=== PATIENT | male | born 1990 | race Caucasian/White ===

== ENCOUNTER 2020-06-20 13:41 | Emergency (ER) | payer SELFPAY ==
[2020-06-20 13:49] VITALS: BP 145/96; PULSE 92; RESP 18; TEMP 36.7; O2SAT 98; BMI 24.2
--- NOTE | 2020-06-20 13:54 | ED_ITS ---
HPI - Nausea/Vomiting/Diarrhea General: Chief complaint: Abdominal Pain Stated complaint: N/V, ABD PAIN Time Seen by Provider: 06/20/20 13:43 Source: patient Mode of arrival: ambulatory Limitations: no limitations History of Present Illness: HPI Narrative: Patient is a 29-year-old male who presents to ED today requesting a return to work note. Patient tells me he missed the last 2 days of work for nausea, vomiting, and diarrhea. He tells me 2 days ago he began having nausea. He states yesterday he had 2 episodes of non-bloody diarrhea and one episode of non-bloody emesis. He tells me today the nausea has completely subsided and he has not had any further episodes of diarrhea. He is not running fevers. He does not have abdominal pain. He tells me he does not want any lab work or evaluation today. He states he simply wants a work note to return to work. MD elicited complaint: nausea, vomiting and diarrhea Onset (ago): day(s) Associated nausea: Yes (gone now) Associated abdominal pain: No Location of pain: None Associated symtoms: Reports no associated symptoms and nausea (gone now); Denies chest pain or headache(s) Review of Systems Const: Denies: fever(s) or chills Card: Denies: chest pain Resp: Denies: dyspnea GI: Reports: nausea (gone now), vomiting (x1 ) and diarrhea (x2); Denies: abdominal pain, hematemesis, heartburn, change in bowel habits, pain on defecation, change in stool character or hematochezia : Denies: flank pain Musc: Denies: neck pain or back pain Skin/Breast: Denies: rash Neuro: Denies: headache(s) Physical Exam Const: COMMON NORMALS: no acute distress, average body habitus, patient oriented x3, no limitations, healthy appearing, alert and well nourished GENERAL APPEARANCE: cooperative Resp: COMMON NORMALS: normal respiratory effort and clear to auscultation bilaterally AUSCULTATION: clear to auscultation bilaterally Cardio: COMMON NORMALS: regular rate and regular rhythm RATE: regular rate RHYTHM: regular rhythm GI: COMMON NORMALS: Normal to inspection, nondistended, normoactive bowel sounds present, Soft to palpation, non-tender, No hepatosplenomegaly present and no masses PALPATION: Yes Soft to palpation and Yes No hepatosplenomegaly pres ent Neuro: COMMON NORMALS: patient oriented x3 SENSORIUM/ORIENTATION: Yes alert Skin: COMMON NORMALS: no rashes or lesions noted GENERAL SKIN EXAM: no rashes or lesions noted Course Vital Signs: Vital signs: Vital Signs Temperature 98.1 F 06/20/20 13:49 Pulse Rate 92 06/20/20 13:49 Respiratory Rate 18 06/20/20 13:49 Blood Pressure 145/96 06/20/20 13:49 Pulse Oximetry 98 06/20/20 13:49 MDM - Nausea/Vomiting/Diarrhea MDM Narrative: Medical decision making narrative: Patient's vital signs are stable. His abdomen is non-tender. He has no clinical signs of dehydration. Patient has not wanting any form of lab work or evaluation today-I think this is appropriate given his mild symptoms. Patient will be provided a work note. Discharge Plan Discharge Patient Disposition: Home Clinical Impression: Gastroenteritis Condition: Stable Discharge Orders: Discharge ED (Routine); Ordered 06/20/20 Ordered By: Rivka Henderson Patient Instructions: Gastroenteritis (ED) Stand Alone Forms: Work/School Release Coding Level of Care Code ED [employer] for [employer]uradha Pressley
--- NOTE | 2020-06-20 14:05 | PC.NURSE ---
provider saw patient and discharged patient with work note. patient stable. no acute distress noted .
== END 2020-06-20 14:07 | disposition home or self-care (01) ==
PROVIDERS: Emergency Provider Physician Assistant
DX: K52.9 Noninfective gastroenteritis and colitis, unspecified (principal)
CPT/HCPCS: 99281